=== PATIENT | male | born 1970 | race Hispanic/Latino ===

== ENCOUNTER 2022-09-25 10:30 | Inpatient (IN) | payer SELFPAY ==
[2022-09-25 11:42] LABS: Absolute Lymphocytes (CBC) 2.1 K/uL (0.7-4.9); Hematocrit 39.6 % (39.6-49.0); Lymphocytes % 13.2 % (15.3-44.8); MCV 84.7 fL (80-100); MPV 8.6 fL (7.6-11.3); RBC Red Blood Cell Count 4.68 M/uL (4.33-5.43)
[2022-09-25 11:47] LABS: Urine Blood 2+ (Negative); Urine Glucose Trace (Negative); Urine Protein 2+ (Negative); Urine Specific Gravity 1.025 (1.005-1.030); Urine pH 5.5 (5.0-7.0)
[2022-09-25 12:35] LABS: Platelet Estimate ADEQ; White Blood Cell Scan OK (OK)
[2022-09-25 12:36] LABS: Blood Morphology Comment NOT SEEN (NOT SEEN)
--- NOTE | 2022-09-25 15:11 | RAD REPORT ---
EXAM DESCRIPTION: CTAbdomen Pelvis W Contrast - 09/25/2022 2:45 pm CLINICAL HISTORY: right lower abdominal pain COMPARISON: No comparisons TECHNIQUE: CT of the abdomen and pelvis was performed with IV contrast. All CT scans are performed using dose optimization technique as appropriate and may include automated exposure control or mA/KV adjustment according to patient size. FINDINGS: Lower chest: No acute abnormality. Liver: No acute abnormality or suspicious lesions. Biliary: No biliary ductal dilatation. Stomach: No significant focal abnormality. Duodenum: No significant focal abnormality. Pancreas: No significant abnormality. Spleen: No significant abnormality. Adrenal: No suspicious lesions. Kidney/ureter: No hydronephrosis. No renal calculi. Renal cysts. Retroperitoneum: No retroperitoneal adenopathy. Vascular: No aneurysm. Bowel: Gas containing collection with cecal wall measuring 7.5 x 6.6 cm within the small bowel mesent lidia. Normal appendix.. No bowel obstruction. Peritoneum: No ascites or free air. Bladder: Grossly unremarkable. Reproductive: No adnexal masses. Bones: No acute fracture. Other: n/a IMPRESSION: Predominantly soft tissue mass in the small bowel mesentery which contains both gas and fluid is suspicious for small bowel neoplasm as the eccentric thickening of the wall is not typical o f an abscess. Furthermore, no significant inflammatory changes are noted. Recommend surgical consulta tion. Note the appendix is normal.
--- NOTE | 2022-09-25 15:37 | ER ---
Nurse's Notes [facility] Name: Rick Carey Age: 52 yrs Sex: Male : 1970 Arrival Date: 09/25/2022 Time: 10:33 Bed 14 Private MD: Diagnosis: Enteritis and colitis;Leukocytosis Presentation: 09/25 11:07 Chief complaint: Patient states: RLQ pain X 1 day. Coronavirus screen: At this time, ld1 the client does not indicate any symptoms associated with coronavirus-19. Ebola Screen: No symptoms or risks identified at this time. Initial Sepsis Screen: Does the patient meet any 2 criteria? No. Patient's initial sepsis screen is negative. Does the patient have a suspected source of infection? No. Patient's initial sepsis screen is negative. Risk Assessment: Do you want to hurt yourself or someone else? Patient reports no desire to harm self or others. Onset of symptoms was September 25, 2022 at 11:09. 11:07 Method Of Arrival: Ambulatory ld1 11:07 Acuity: RONA 3 ld1 Triage Assessment: 11:07 General: Appears in no apparent distress. comfortable, Behavior is calm, cooperative, ld1 appropriate for age. Pain: Complains of pain in right lower quadrant Pain does not radiate. Pain currently is 9 out of 10 on a pain scale. Quality of pain is described as throbbing, Pain began suddenly, Is continuous. EENT: No signs and/or symptoms were reported regarding the EENT system. Neuro: Level of Consciousness is awake, alert, obeys commands, Oriented to person, place, time, situation. Cardiovascular: Capillary refill < 3 seconds Patient's skin is warm and dry. Respiratory: Airway is patent Respiratory effort is even, unlabored. GI: Abdomen is flat, non-distended. : No signs and/or symptoms were reported regarding the genitourinary system. Historical: - Allergies: 11:07 No Known Allergies; ld1 - PMHx: 11:07 None; ld1 - PSHx: 11:07 None; ld1 - Immunization history:: Adult Immunizations up to date, Client reports receiving the 2nd dose of the Covid vaccine. - Social history:: Smoking status: Patient denies any tobacco usage or history of. Patient/guardian denies using alcohol. Screenin:49 Abuse screen: Denies threats or abuse. Denies injuries from another. Nutritional aa9 screening: No deficits noted. Tuberculosis screening: No symptoms or risk factors identified. Assessment: 16:14 General: Appears in no apparent distress. comfortable, Behavior is calm, cooperative, kr3 appropriate for age. Pain: Complains of pain in abdomen. Neuro: Level of Consciousness is awake, alert, obeys commands, Oriented to person, place, time, situation. Cardiovascular: Patient's skin is warm and dry. Respiratory: Airway is patent Respiratory effort is even, unlabored, Respiratory pattern is regular, symmetrical. GI: Bowel sounds present X 4 quads. Abd is soft in right upper quadrant, left upper quadrant and left lower quadrant Abd is non tender Abdomen is tender to palpation in right lower quadrant. : No signs and/or symptoms were reported regarding the genitourinary system. EENT: No signs and/or symptoms were reported regarding the EENT system. Derm: Skin is intact, is healthy with good turgor. Musculoskeletal: Circulation, motion, and sensation intact. Vital Signs: 11:07 BP 127 / 71; Pulse 80; Resp 18; Temp 99.8(O); Pulse Ox 97% on R/A; Weight 90.26 kg; ld1 Height 5 ft. 10 in. (177.80 cm); Pain 10/10; 11:07 Body Mass Index 28.55 (90.26 kg, 177.80 cm) ld1 ED Course: 10:33 Patient arrived in ED. mr 10:34 Alexander Dean PA is PHCP. jmm 10:34 Cameron Johnson MD is Attending Physician. jmm 11:07 Arm band placed on left wrist. ld1 11:09 Triage completed. ld1 11:39 Lipase Sent. zm 11:39 CMP Sent. zm 11:39 CBC with Diff Sent. zm 11:40 Inserted saline lock: 20 gauge in left antecubital area, using aseptic technique. Blood zm collected. 14:47 CT Abd/Pelvis - IV Contrast Only In Process Unspecified. EDMS 15:34 Tae Beth MD is Hospitalizing Provider. jmm 16:14 Daphne Rosenbaum RN is Primary Nurse. kr3 19:49 Patient has correct armband on for positive identification. Bed in low position. Call aa9 light in reach. Side rails up X2. 19:49 No provider procedures requiring assistance completed. Patient admitted, IV remains in aa9 place. Administered Medications: 16:58 Drug: Zosyn (piperacillin-tazobactam) 3.375 grams Route: IVPB; Infused Over: 60 mins; kr3 Site: left hand; Medication: 19:49 VIS not applicable for this client. aa9 Outcome: 15:37 Decision to Hospitalize by Provider. [facility] 19:49 Admitted to ER Hold. Please see [facility] for further documentation. aa9 19:49 Condition: stable 19:49 Instructed on the need for admit. 09/26 13:15 Patient left the ED. kr3 Signatures: Dispatcher [employer] EDMS Alexander Dean PA PA jmm Rivera, Mary mr Marce Ovalles, RN RN ld1 Rosemarie Richardson Aylin RN RN aa9 Daphne Rosenbaum RN RN kr3
--- NOTE | 2022-09-25 15:37 | EDPHYS ---
Physician Documentation [facility] Name: Rick Carey Age: 52 yrs Sex: Male : 1970 Arrival Date: 09/25/2022 Time: 10:33 Bed 14 Private MD: ED Physician Cameron Johnson HPI: 09/25 11:08 This 52 yrs old Male presents to ER via Ambulatory with complaints of jmm Abdominal Pain. 11:08 The patient presents with abdominal pain. Onset: The symptoms/episode began/occurred jmm gradually, today. The symptoms do not radiate. Associated signs and symptoms: Pertinent negatives: diarrhea, vomiting. The symptoms are described as achy. Modifying factors: The symptoms are alleviated by nothing, the symptoms are aggravated by nothing. This is a 52 year old male with no chronic medical conditions that presents to the ED with complaints of right lower abdominal pain beginning earlier today. Denies fever, vomiting, diarrhea. Historical: - Allergies: 11:07 No Known Allergies; ld1 - PMHx: 11:07 None; ld1 - PSHx: 11:07 None; ld1 - Immunization history:: Adult Immunizations up to date, Client reports receiving the 2nd dose of the Covid vaccine. - Social history:: Smoking status: Patient denies any tobacco usage or history of. Patient/guardian denies using alcohol. ROS: 11:08 Constitutional: Negative for fever, chills, and weight loss, Cardiovascular: Negative jmm for chest pain, palpitations, and edema, Respiratory: Negative for shortness of breath, cough, wheezing, and pleuritic chest pain. 11:08 Abdomen/GI: Positive for abdominal pain. 11:08 All other systems are negative. Exam: 11:08 Constitutional: This is a well developed, well nourished patient who is awake, alert, jmm and in no acute distress. Head/Face: atraumatic. Eyes: EOMI, no conjunctival erythema appreciated ENT: Moist Mucus Membranes Neck: Trachea midline, Supple Chest/axilla: Normal chest wall appearance and motion. Cardiovascular: Regular rate and rhythm. No edema appreciated Respiratory: Normal respirations, no respiratory distress appreciated 11:08 Back: Normal ROM Skin: General appearance color normal MS/ Extremity: Moves all extremities, no obvious deformities appreciated, no edema noted to the lower extremities Neuro: Awake and alert Psych: Behavior is normal, Mood is normal, Patient is cooperative and pleasant 11:08 Abdomen/GI: Inspection: abdomen appears normal, Bowel sounds: normal, Palpation: soft, moderate abdominal tenderness, in the right lower quadrant. Vital Signs: 11:07 BP 127 / 71; Pulse 80; Resp 18; Temp 99.8(O); Pulse Ox 97% on R/A; Weight 90.26 kg; ld1 Height 5 ft. 10 in. (177.80 cm); Pain 10/; 11:07 Body Mass Index 28.55 (90.26 kg, 177.80 cm) ld1 MDM: 11:08 Patient medically screened. [facility] 15:31 Data reviewed: vital signs, nurses notes. Counseling: I had a detailed discussion with [facility] the patient and/or guardian regarding: the historical points, exam findings, and any diagnostic results supporting the discharge/admit diagnosis, radiology results, the need for further work-up and treatment in the hospital. ED course: I discussed the patient with Dr. Richardson whom will consult on admission. I discussed the patient with Dr. Beth whom accepted the patient for admission. . 09/25 11:08 Order name: CBC with Diff; Complete Time: 12:38 [facility] 09/25 11:08 Order name: CMP; Complete Time: 15:46 [facility] 09/25 11:08 Order name: Lipase; Complete Time: 15:46 [facility] 09/25 11:47 Order name: Urine Dipstick-Ancillary; Complete Time: 11:47 [facility] 09/25 12:36 Order name: CBC Smear Scan; Complete Time: 12:38 [facility] 09/25 14:47 Order name: CREATININE WHOLE BLOOD; Complete Time: 14:48 [facility] 09/25 15:20 Order name: SARS RAPID; Complete Time: 18:18 [facility] 09/25 16:24 Order name: Protime (+INR); Complete Time: 09:17 [facility] 09/25 16:24 Order name: CBC with Automated Diff [facility] 09/25 16:24 Order name: CBC with Automated Diff; Complete Time: 09:17 [facility] 09/25 16:24 Order name: Comprehensive Metabolic Panel [facility] 09/25 16:24 Order name: Comprehensive Metabolic Panel; Complete Time: 09:17 [facility] 09/25 16:24 Order name: Acute Hepatitis Panel; Complete Time: 09:17 [facility] 09/26 05:34 Order name: HBsAG Nonreactive Report; Complete Time: 09:17 [facility] 09/25 11:08 Order name: CT Abd/Pelvis - IV Contrast Only; Complete Time: 15:12 [facility] 09/25 11:08 Order name: IV Saline Lock; Complete Time: 11:39 [facility] 09/25 11:08 Order name: Labs collected and sent; Complete Time: 11:28 [facility] 09/25 11:08 Order name: Urine Dipstick-Ancillary (obtain specimen); Complete Time: 11:39 [facility] 09/25 12:51 Order name: Misc. Order: recollect CMP; Complete Time: 15:05 [facility] 09/25 16:24 Order name: NPO; Complete Time: 16:43 [facility] 09/25 16:25 Order name: Dr Annabel Richardson EDVT Administered Medications: 16:58 Drug: Zosyn (piperacillin-tazobactam) 3.375 grams Route: IVPB; Infused Over: 60 mins; kr3 Site: left hand; Disposition Summary: 09/25/22 15:37 Hospitalization Ordered Hospitalization Status: Observation [facility] Provider: Tae Beth Condition: Stable [facility] Problem: new [facility] Symptoms: are unchanged [facility] Bed/Room Type: Standard [facility] Location: Telemetry/MedSurg (observation)(09/26/22 11:53) kj1 Room Assignment: [facility](09/26/22 11:53) kj1 Diagnosis - Enteritis and colitis jm - Leukocytosis [facility] Forms: - Medication Reconciliation Form [facility] - SBAR form [facility] Signatures: Dispatcher [employer] EDMS Alexander Dean PA PA m Aysha Pérez RN RN jl7 Araceli Fonseca kj1 Marce Ovalles RN RN ld1 Daphne Rosenbaum RN RN kr3 Corrections: (The following items were deleted from the chart) 18:57 15:37 Telemetry/MedSurg (observation) [facility] jl 18:57 15:37 [place] [id number] 09/26 11:53 09/25 18:57 [facility] ER HOLD [facility] kj1 09/26 11:53 09/25 18:57 ERHOLD- [facility] kj
[2022-09-25 15:38] LABS: Albumin 3.9 g/dL (3.4-5.0); Bilirubin Total 1.8 mg/dL (0.2-1.0); Potassium 3.7 mmol/L (3.5-5.1); Protein, Total 8.8 g/dL (6.4-8.2)
[2022-09-25] MEDS ORDERED: ONDANSETRON 4 MG/2 ML VIAL IV PRN (16:20)
--- NOTE | 2022-09-25 16:23 | P.HP ---
Certification for Inpatient Patient admitted to: Inpatient With expected LOS: >2 Midnights Practitioner: I am a practitioner with admitting privileges, knowledge of patient current condition, hospital course, and medical plan of care. Services: Services provided to patient in accordance with Admission requirements found in Title 42 Section 412.3 of the Code of Federal Regulations Patient History Date of Service: 09/25/22 Reason for admission: Abdominal pain History of Present Illness: Patient is 52 years of age presented with acute onset of right periumbilical abdominal pain became worse last night and it appeared in the emergency room normal CT scan eyes any fever chills diarrhea vomiting - Past Medical/Surgical History Past Medical History: Reviewed- Non-Contributory Past Surgical History: Reviewed- Non-Contributory Review of Systems 10-point ROS is otherwise unremarkable Physical Examination - Physical Exam General: Alert, Oriented x3 Neck: Supple Respiratory: Clear to auscultation bilaterally Cardiovascular: No edema, Normal pulses, Regular rate/rhythm Gastrointestinal: Normal bowel sounds, Tenderness (Slight deep tenderness right of the umbilicus area no rebound or guarding) - Studies Laboratory Data (last 24 hrs) 09/25/22 15:03: Sodium 135 L, Potassium 3.7, BUN 14, Creatinine 0.92, Glucose 124 H, Total Bilirubin 1.8 H, AST 93 H, ALT 222 H, Alkaline Phosphatase 185 H, Lipase 102 09/25/22 11:30: WBC 15.80 H, Hgb 14.0, Hct 39.6, Plt Count 275 Assessment and Plan - Problems (Diagnosis) (1) Abdominal pain Current Visit: Yes Status: Acute Plan: Patient is 52 years of age previously healthy admitted with acute onset of abdominal pain and CT scan is abnormal this may be a mass in the small intestine as detailed below-possibility of small bowel neoplasm Dylan has been consulted labs abnormal normal LFTs start patient on antibiotics for now IV fluids n.p.o. Predominantly soft tissue mass in the small bowel mesentery which contains both gas and fluid is suspicious for small bowel neoplasm as the eccentric thickening of the wall is not typical of an abscess. Furthermore, no significant inflammatory changes are noted. Recommend surgical consultation. Note the appendix is normal. Qualifiers: Abdominal location: periumbilical Qualified Code(s): R10.33 - Periumbilical pain - Advance Directives Does patient have a Living Will: No Does patient have a Durable POA for Healthcare: No
[2022-09-25] MEDS ORDERED: NA CHLORIDE 0.9% 100 ML IV ONE (16:47)
[2022-09-25] MEDS ORDERED: PIPERACIL/TAZO 3.375 GM VIAL IV ONE (16:47)
[2022-09-25] MEDS: PIPER TAZO 4.5 GM in NA CHLORIDE 0.9% 100 ML IV SCH (17:00)
[2022-09-25] MEDS: NA CHLORIDE 0.9% 1,000 ML IV SCH (17:00)
[2022-09-25 18:13] LABS: SARS-CoV-2 Antigen Rapid Res Negative (Negative)
[2022-09-25] MEDS ORDERED: NA CHLORIDE 0.9% 1,000 ML ONE (21:49)
[2022-09-26] MEDS: PIPER TAZO 4.5 GM in NA CHLORIDE 0.9% 100 ML IV SCH ×2 (01:00→09:00)
[2022-09-26] MEDS ORDERED: NA CHLORIDE 0.9% 1,000 ML ONE (01:28)
[2022-09-26] MEDS ORDERED: PIPERACIL/TAZO 4.5 GM VIAL IV ONE ×2 (01:28→08:53)
[2022-09-26] MEDS ORDERED: NA CHLORIDE 0.9% 100 ML IV ONE ×2 (01:28→08:54)
[2022-09-26] MEDS: NA CHLORIDE 0.9% 1,000 ML IV SCH ×2 (02:50→14:00)
[2022-09-26 03:01] LABS: Absolute Lymphocytes (CBC) 1.1 K/uL (0.7-4.9); Hematocrit 37.1 % (39.6-49.0); Lymphocytes % 9.2 % (15.3-44.8); MCV 86.3 fL (80-100); MPV 8.5 fL (7.6-11.3); Protime INR 1.18
[2022-09-26] MEDS: MORPHINE 2 MG/ML SYR IV PRN ×2 (03:13→09:31)
[2022-09-26 03:14] LABS: Albumin 3.3 g/dL (3.4-5.0); Bilirubin Total 1.9 mg/dL (0.2-1.0); Potassium 3.6 mmol/L (3.5-5.1); Protein, Total 7.4 g/dL (6.4-8.2)
[2022-09-26] MEDS ORDERED: MORPHINE 2 MG/ML SYR ONE ×2 (03:19→08:54)
[2022-09-26 05:33] LABS: Hepatitis B Core IgM Nonreactive (Nonreactive); Hepatitis B surface AG Interp. Nonreactive (Nonreactive); Hepatitis C Virus Ab Nonreactive (Nonreactive)
--- NOTE | 2022-09-26 13:10 | CON ---
Date of Consultation: 09/26/2022 History Of Present Illness: Mr. Ladd is a 52-year-old patient, who came to the hospital with abd ominal pain. He says he had it several weeks ago, the area improved on his own. It was around the [facility] region, but yesterday he was invited to some friend's house and ate a lot of pork and th en the pain started and he came to the ER. When he came to the ER, he was diagnosed with colitis and enteritis, cannot rule out inflammation from infection versus neoplasm. The patient feels better to day. Abdominal pain is a lot better with no nausea, vomiting. No melena. He denies any dysuria, he maturia, hematochezia, melena. Denies any recent traveling out of the country. Denies any family me mber sick at home. Allergies: NONE. Medications: None. Past Surgical History: Surgeries none. Social History: He does not smoke. He does not drink alcohol. Family History: No history of cancer or neoplasm. No previous colonoscopies. Review of Systems: Ten points otherwise unremarkable. Physical Examination: HEENT: Pupils are equal and reactive. Anicteric. Neck: Supple. Chest: Clear. Heart: S1, S2. Abdomen: Soft and depressible. Mild mid abdominal pain. No guarding or rebound. No peritoneal sig ns. Laboratory Data: Blood work shows a WBC count of 15, came down to 11. Platelets of 243. INR is 1.1 8. Sodium is 136. Total bilirubin of 1.9, alkaline phosphatase 146, lipase 102. UA, nitrate positi ve. CAT scan of the abdomen and pelvis shows as described by Dr. Mejia, radiologist, predominantly so ft tissue mass in the small bowel mesentery, which contained both gas and fluid suspicious for small bowel neoplasm, although abscess cannot be rule out. Appendix seems to be normal. Assessment: This is a 52-year-old patient, who comes to us with abdominal pain on and off, feels bet ter right now. The pain is almost gone. He was eating a lot of food yesterday including a lot of po rk when he went to a friend's republican, developed the pain, today is better, but then on the CAT scan, h e was found this a mesenteric tissue that cannot rule out neoplasm versus abscess. From the surgical standpoint, this is colitis and enteritis, so we will bring the inflammation down, hopefully that wi ll allow us to eventually do workup including GI workup, may include colonoscopy to see we can find e tiology of this inflammatory process. In the case if not found on endoscopies and does not come down with antibiotics, then diagnostic lap is an option most likely as an outpatient if he improves durin g this admission. So, continue on antibiotics. We are going to start his diet. SOPHIA/AMANUEL Voice ID: [id number] Report ID: [id number]
[2022-09-26] MEDS: PIPER TAZO 3.375 GM in NA CHLORIDE 0.9% 100 ML IV SCH (17:04)
--- NOTE | 2022-09-26 17:34 | P.PN ---
Subjective Date of Service: 09/26/22 Chief Complaint: Abdominal pain Patient reports significant improvement in his abdominal pain. Reports only mild intermittent pain today. He has been experiencing intermittent low-grade fever. Physical Examination - Vital Signs Temperature: 100.1 F Blood Pressure: 122/60 Pulse: 88 Respirations: 18 Pulse Ox (%): 97 - Physical Exam General: Alert, In no apparent distress, Oriented x3 HEENT: Mucous membr. moist/pink Neck: Supple, JVD not distended Respiratory: Clear to auscultation bilaterally, Normal air movement Cardiovascular: No edema, Regular rate/rhythm, Normal S1 S2 Gastrointestinal: Normal bowel sounds, Soft and benign, No guarding, Tenderness (Mild mid abdomen tenderness) Musculoskeletal: No swelling, No tenderness Integumentary: No rashes, No erythema Neurological: Normal strength at 5/5 x4 extr Assessment And Plan - Current Problems (Diagnosis) (1) Enterocolitis Current Visit: Yes Status: Acute (2) Mesenteric mass Current Visit: Yes Status: Acute (3) Sepsis Current Visit: Yes Status: Acute - Plan Patient seen by general surgery. Dr. Richardson recommend medical management for enteritis and colitis. Patient will need outpatient work-up with colonoscopy. Patient started on a clear liquid diet by general surgery. Obtain blood cultures given fever and leukocytosis meeting criteria for sepsis. Continue IV Zosyn. Leukocytosis is improving. Monitor CBC.
[2022-09-27] MEDS: NA CHLORIDE 0.9% 1,000 ML IV SCH ×4 (00:46→21:23)
[2022-09-27] MEDS: PIPER TAZO 3.375 GM in NA CHLORIDE 0.9% 100 ML IV SCH ×3 (00:49→16:20)
[2022-09-27 03:50] LABS: Hematocrit 32.6 % (39.6-49.0); Lymphocytes % 11.2 % (15.3-44.8); MCV 85.3 fL (80-100); MPV 8.4 fL (7.6-11.3); RBC Red Blood Cell Count 3.82 M/uL (4.33-5.43)
[2022-09-27 04:14] LABS: Albumin 2.8 g/dL (3.4-5.0); Bilirubin Total 2.2 mg/dL (0.2-1.0); Potassium 3.7 mmol/L (3.5-5.1); Protein, Total 6.7 g/dL (6.4-8.2)
[2022-09-27] MEDS: ACETAMINOPHEN 500 MG TAB PO PRN ×2 (05:37→16:57)
--- NOTE | 2022-09-27 11:03 | PN ---
Date of Progress Note: 09/27/2022 Reason For Service: Inflammatory mass in the mesentery, unknown etiology. Subjective: Patient feels better. No more nausea. He was almost pain-free overnight. He ate some breakfast this morning and pain somehow came not as of same intensity, but present. No peritonitis p resent. Patient is passing flatus. Objective: Chest: Clear. Abdomen: Soft and depressible. Mild periumbilical tenderness. No guarding or rebound. Extremities: Good capillary refill. Laboratory Data: Blood work came down from 15 to 8.0 with hemoglobin of 11.4. Patient has been on antibiotics. Plan: He understands his options of laparotomy versus elective laparoscopic possible open surgery. Since we do not know the etiology of this, some workup has to be done or should be done including GI endoscopies that he does not have them yet. So, with antibiotics he responding, he is feeling better . We are controlling the inflammatory process of it since we cannot rule out an abscess in that area as the etiology of this. If he improves and then he can tolerate diet, then the rest of the workup can be done as an outpatient with a surgery possibly at the end of this workup. He preferred that wa y. If he does not improve and clinically he deteriorates, then we have to go for exploratory laparot salma and any indicated procedure. SOPHIA/AMANUEL Voice ID: [id number] Report ID: [id number]
--- NOTE | 2022-09-27 15:09 | P.PN ---
Subjective Date of Service: 09/27/22 Chief Complaint: Abdominal pain Patient has no new complaint. Noted he has been experiencing intermittent fever, up to 100.7 this morning. He reports BM yesterday. He reports only mild abdominal pain. Physical Examination - Vital Signs Temperature: 98.2 F Blood Pressure: 104/53 Pulse: 66 Respirations: 16 Pulse Ox (%): 98 - Physical Exam General: Alert, In no apparent distress, Oriented x3 HEENT: Mucous membr. moist/pink Neck: JVD not distended Respiratory: Clear to auscultation bilaterally, Normal air movement Cardiovascular: No edema, Regular rate/rhythm, Normal S1 S2 Gastrointestinal: Soft and benign, Non-distended, No tenderness, No rebound, No guarding Musculoskeletal: No swelling Integumentary: No cyanosis Neurological: Normal strength at 5/5 x4 extr Assessment And Plan - Current Problems (Diagnosis) (1) Enterocolitis Current Visit: Yes Status: Acute (2) Mesenteric mass Current Visit: Yes Status: Acute (3) Sepsis Current Visit: Yes Status: Acute - Plan Patient seen by general surgery. Dr. Richardson recommend medical management for enteritis and colitis. Patient will need outpatient work-up with colonoscopy. Is currently tolerating clear liquid diet by general surgery. Blood cultures are pending. Leukocytosis resolved. Continue IV Zosyn. Monitor CBC. Patient has clinically improved. Planning to D/C once fever resolve.
[2022-09-28] MEDS: PIPER TAZO 3.375 GM in NA CHLORIDE 0.9% 100 ML IV SCH ×3 (01:00→18:32)
[2022-09-28] MEDS: NA CHLORIDE 0.9% 1,000 ML IV SCH ×3 (05:00→18:36)
--- NOTE | 2022-09-28 14:38 | P.PN ---
Subjective Date of Service: 09/28/22 Chief Complaint: Abdominal pain Patient is complaining of diarrhea. About 5 watery bowel movement last night. He reports only mild abdominal pain. He continues to experience intermittent low-grade fever. Physical Examination - Vital Signs Temperature: 98.7 F Blood Pressure: 130/62 Pulse: 81 Respirations: 16 Pulse Ox (%): 97 - Physical Exam General: Alert, In no apparent distress, Oriented x3 HEENT: Mucous membr. moist/pink Respiratory: Clear to auscultation bilaterally, Normal air movement Cardiovascular: No edema, Regular rate/rhythm, Normal S1 S2 Gastrointestinal: Normal bowel sounds, Soft and benign, Non-distended, Tenderness (Mild tenderness - mid abdomen) Musculoskeletal: No swelling Integumentary: No rashes Neurological: Normal strength at 5/5 x4 extr Assessment And Plan - Current Problems (Diagnosis) (1) Enterocolitis Current Visit: Yes Status: Acute (2) Mesenteric mass Current Visit: Yes Status: Acute (3) Sepsis Current Visit: Yes Status: Acute - Plan General surgery Dr. Richardson is following and recommend medical management for now. Continue IV Zosyn. Check stool for C. difficile given diarrhea outpatient work-up with colonoscopy recommended by surgeon if patient clinical condition continues to improve. Otherwise exploratory laparotomy by Dr. Richardson. He is currently tolerating clear liquid diet recommended by Dr. Richardson.. Blood cultures: No growth to date. Leukocytosis resolved. Continue IV Zosyn. Monitor CBC.
[2022-09-28] MEDS: ACETAMINOPHEN 500 MG TAB PO PRN (15:09)
[2022-09-28] MEDS: ENSURE CLEAR 200 ML CAN PO SCH (20:05)
[2022-09-28] MEDS: Banana Flakes/T-Galactooligos 1 Dose Packet PO SCH (20:05)
[2022-09-28] MEDS: MORPHINE 2 MG/ML SYR IV PRN (20:28)
[2022-09-28 23:46] VITALS: BMI 28.3
[2022-09-29] MEDS: NA CHLORIDE 0.9% 1,000 ML IV SCH ×2 (01:00→23:03)
[2022-09-29] MEDS: PIPER TAZO 3.375 GM in NA CHLORIDE 0.9% 100 ML IV SCH ×3 (01:49→18:29)
[2022-09-29 04:25] LABS: Potassium 3.5 mmol/L (3.5-5.1)
[2022-09-29] MEDS: ENSURE CLEAR 200 ML CAN PO SCH ×2 (08:37→23:04)
[2022-09-29] MEDS ORDERED: INFLUENZA VACCINE (for 6+ mo) 0.5 ML DOSE IMVAC ONE (09:00)
[2022-09-29] MEDS: Banana Flakes/T-Galactooligos 1 Dose Packet PO SCH ×2 (09:00→21:00)
--- NOTE | 2022-09-29 13:26 | RAD REPORT ---
EXAM DESCRIPTION: CT - Abdomen Pelvis W Contrast - 09/29/2022 1:00 pm CLINICAL HISTORY: Abdominal pain COMPARISON: September 25, 2022 TECHNIQUE: Computed axial tomography of the abdomen pelvis was obtained. 100 cc Isovue-300 was admin istered intravenously. Oral contrast was not requested which limits evaluation of bowel and appendix All CT scans are performed using dose optimization technique as appropriate and may include automated exposure control or mA/KV adjustment according to patient size. FINDINGS: The liver, spleen, pancreas, adrenal and right kidney appear unremarkable. Left renal cyst unchanged. There is no evidence of diverticulitis. Visualized appendix appears normal 9 x 8 centimeter fluid-filled mass within the central mesentery within the lower abdomen/upper pelvis anteriorly has enlarged. It contains air. Mild stranding within the adjacent fat. The mass has enlar ged since the prior exam. It abuts the small bowel. No obstruction. IMPRESSION: 9 centimeter fluid-filled mass containing air within the central mesentery has enlarged since the prior exam probably an abscess. Considerations include bacterial, MICHELLE and amoebiasis
--- NOTE | 2022-09-29 16:11 | P.PN ---
Subjective Date of Service: 09/29/22 Chief Complaint: Abdominal pain Patient states the diarrhea has improved, no more vomiting He reports persistent mild abdominal pain. No fever today. Physical Examination - Vital Signs Temperature: 99.4 F Blood Pressure: 117/61 Pulse: 71 Respirations: 16 Pulse Ox (%): 95 - Physical Exam General: Alert, In no apparent distress HEENT: Mucous membr. moist/pink Neck: JVD not distended Respiratory: Clear to auscultation bilaterally, Normal air movement Cardiovascular: No edema, Regular rate/rhythm, Normal S1 S2 Gastrointestinal: Soft and benign, Non-distended, No rebound, No guarding, Tenderness (Mid abdomen) Musculoskeletal: No swelling Integumentary: No rashes, No cyanosis Neurological: Normal strength at 5/5 x4 extr Assessment And Plan - Current Problems (Diagnosis) (1) Intra-abdominal abscess Current Visit: Yes Status: Acute (2) Mesenteric mass Current Visit: Yes Status: Acute (3) Sepsis Current Visit: Yes Status: Acute - Plan General surgery Dr. Richardson is following. Repeat CT scan shows an enlarging abscess-could be infectious, MICHELLE or amoeba per radiology. Dr. Richardson is planning exploratory laparotomy tomorrow Continue IV Zosyn. C. difficile test is pending Blood cultures: No growth to date. Leukocytosis resolved. Monitor CBC. Pain management as needed.
[2022-09-29] MEDS: MORPHINE 2 MG/ML SYR IV PRN (23:08)
--- NOTE | 2022-09-30 01:15 | PN ---
Date of Progress Note: 09/29/2022 Reason For Service: Intraabdominal mass, colitis, enteritis. Subjective: This is the case of a 52-year-old patient who came to us few days ago with abdominal miles n, initially found an area on the mesentery, which had the appearance of a tumor, although inflammato ry changes or abscess cannot be ruled out. Etiology is unknown. Patient was started on antibiotics, bowel rest. Today, the CAT scan repeated and what we noticed is that, the area of concern is increa sing in size. There is a 9 cm now fluid-filled mass containing air within the central mesentery, but still the etiology of that is unknown. Many consideration described by the radiologist may include a bacterial versus amoeba, once again, there is still the possibility of a mass. The patient is stil l having pain. Physical Examination: Mid abdominal pain is still present, not improving, although today is treated with antibiotics. So, we explained to him the pros and cons of surgical intervention. He wants to go ahead with the surgic al intervention. We are going to put as diagnostic laparoscopy, possible exploratory laparotomy, pos sible bowel resection, possible ostomy with benefits, alternatives, and risks including, but not limi shanta to infection, bleeding, damage to adjacent structures, anesthesia complication, MN, and even deat h. He also understands this may not relieve the symptoms. He might need more than one surgical inte rvention. SOPHIA/AMANUEL Voice ID: [id number] Report ID: [id number]
[2022-09-30] MEDS: PIPER TAZO 3.375 GM in NA CHLORIDE 0.9% 100 ML IV SCH ×3 (03:30→16:13)
[2022-09-30] MEDS: NA CHLORIDE 0.9% 1,000 ML IV SCH ×3 (07:00→16:55)
[2022-09-30] MEDS: MORPHINE 2 MG/ML SYR IV PRN (07:14)
[2022-09-30] MEDS: Banana Flakes/T-Galactooligos 1 Dose Packet PO SCH (07:28)
[2022-09-30] MEDS: ENSURE CLEAR 200 ML CAN PO SCH (07:28)
[2022-09-30 10:03] LABS: C.diff Antigen/Toxin Ag neg : Tox neg (NEG : NEG)
[2022-09-30] MEDS ORDERED: Ringers Lactate 1,000 ML IV ONE ×2 (14:47→17:15)
[2022-09-30] MEDS ORDERED: MIDAZOLAM HCL 2 MG/2 ML INJ ONE (15:40)
[2022-09-30] MEDS ORDERED: LIDOCAINE 1% MPF 5 ML VIAL ONE (15:40)
[2022-09-30] MEDS ORDERED: FENTANYL CITR 100 MCG/2 ML ONE ×2 (15:40→17:06)
[2022-09-30] MEDS ORDERED: propofoL 200 MG/20 ML VIAL IV ONE (15:40)
[2022-09-30] MEDS ORDERED: GLYCOPYRROLATE 0.2 MG/ML SYR ONE (15:41)
[2022-09-30] MEDS ORDERED: dexAMETHasone 4 MG/ML VIAL ONE (15:41)
[2022-09-30] MEDS ORDERED: KETOROLAC 30 MG/ML INJ ONE (15:42)
[2022-09-30] MEDS ORDERED: ROCURONIUM 50 MG/5 ML VIAL IV ONE ×2 (15:42→16:49)
[2022-09-30] MEDS ORDERED: ONDANSETRON 4 MG/2 ML VIAL ONE (15:42)
--- NOTE | 2022-09-30 15:46 | P.PN ---
Subjective Date of Service: 09/30/22 Chief Complaint: Abdominal pain Patient reports persistent mild abdominal pain. He states that his diarrhea has stopped. He is scheduled for surgery today. Physical Examination - Vital Signs Temperature: 97.9 F Blood Pressure: 115/56 Pulse: 65 Respirations: 16 Pulse Ox (%): 99 - Physical Exam General: Alert, In no apparent distress, Oriented x3 HEENT: Mucous membr. moist/pink Neck: JVD not distended Respiratory: Clear to auscultation bilaterally, Normal air movement Cardiovascular: Regular rate/rhythm, Normal S1 S2 Gastrointestinal: Normal bowel sounds, Tenderness (Mid abdomen) Musculoskeletal: No swelling Integumentary: No rashes Neurological: Normal strength at 5/5 x4 extr Assessment And Plan - Current Problems (Diagnosis) (1) Intra-abdominal abscess Current Visit: Yes Status: Acute (2) Mesenteric mass Current Visit: Yes Status: Acute (3) Sepsis Current Visit: Yes Status: Acute - Plan General surgery Dr. Richardson is following. Repeat CT scan shows an enlarging abscess-could be infectious, MICHELLE or amoeba per radiology. Dr. Richardson is planning exploratory laparascopy/laparotomy today. Continue IV Zosyn. C. difficile is negative. Blood cultures: No growth to date. Leukocytosis resolved. Monitor CBC. Pain management as needed.
--- NOTE | 2022-09-30 17:59 | P.BOP ---
Preoperative diagnosis: abdominal pain, intrabdominal abscess, mass, bowel obstruction Postoperative diagnosis: same plus umbilical hernia Primary procedure: Explorarory laparotomy, small bowel resection with anastomosis, drainage of Secondary procedure: intraperitoneal abscess, repair of umbilical hernia Estimated blood loss: <100cc Specimen: culture. inflammatory mass with small bowel loops Findings: see dicta Anesthesia: General Drain(s): SHERLYN drain Transferred to: Recovery Room Condition: Good
[2022-09-30] MEDS: HYDROMORPHONE HCL 1 MG/ML INJ ONE ×2 (18:11→18:16)
[2022-09-30] MEDS ORDERED: HYDROMORPHONE HCL 1 MG/ML INJ ONE (18:36)
--- NOTE | 2022-09-30 19:31 | RAD REPORT ---
EXAM DESCRIPTION: RAD - Abdomen 1 View (KUB) - 09/30/2022 7:21 pm CLINICAL HISTORY: Placement of NGT/OGT. Post Insertion. COMPARISON: Abdomen Pelvis W Contrast dated 09/29/2022; Abdomen Pelvis W Contrast dated 09/25/20 FINDINGS: Nonobstructive bowel gas pattern. No acute osseous abnormality.Visualized lungs are unrema rkable.No abnormal calcifications. Enteric tube overlies the stomach. Surgical drain overlies the low er abdomen. Midline laparotomy alfred IMPRESSION: Nonobstructive bowel gas pattern. Enteric tube tip overlies the stomach in satisfactory position.
[2022-10-01] MEDS: PIPER TAZO 3.375 GM in NA CHLORIDE 0.9% 100 ML IV SCH ×3 (01:59→16:54)
[2022-10-01] MEDS: NA CHLORIDE 0.9% 1,000 ML IV SCH ×4 (01:59→20:17)
--- NOTE | 2022-10-01 03:33 | OP ---
Date of Procedure: 09/30/2022 Surgeon: Brice Richardson MD Preoperative Diagnoses: Abdominal pain, intraabdominal abscess, inflammatory mass, bowel obstruction , umbilical hernia. Postoperative Diagnoses: Abdominal pain, intraabdominal abscess, inflammatory mass, bowel obstructio n, umbilical hernia. Procedure: Exploratory laparotomy, small bowel resection with anastomosis, drainage of intraperitone al abscess, repair of umbilical hernia. Anesthesia: General plus local to drainage SHERLYN #10 x2. Findings: The patient has an inflammatory mass with an abscess, large amount of pus present with int estine twist around it, densely adhered to the abscess itself to the point that the bowel have to be resected. There is a large amount of purulent discharge coming from this abscess cavity. The liver and stomach, the rest of intestines, proximal and distal, and large bowel with no inflammatory masses seen other than that specific area we described. The patient also have umbilical hernia. Stomach s oft and depressible. Indications: This is the case of a male, who comes to us with abdominal pain and inflammatory reacti on in his abdomen. Initially, they were not sure there was a tumor or just an abscess. Antibiotics was started, but in the last few days, he has not improved. He is still having some difficult time e ating and he has an inflammatory process and abscess and right now has a liquid . The poss ibility of a tumor versus small bowel leak with abscess or torsion of the small bowel leak of necrosi s was discussed with the patient and because clinically, he is not improving. After discussing that with him few times and the in Greek and Trinidadian, finally, he accepted that he was not improvin g and signed a consent today and we proceeded to offer him once again laparotomy possible resection w ith benefits, alternatives, and risks including, but not limited to infection, bleeding, damage to ad jacent structures, anesthesia complication, recurrence of abscess, [place], and even . He also under stands this may not relieve any symptoms. He might need more than one surgical intervention. He und erstood, signed a consent. Description Of Procedure: Patient was brought to the operating room, placed in supine position. Ane sthesia was given without complication. Abdominal area was prepped and draped in the usual sterile f ashion. Midline incision was done, carried through the fascia under direct visualization and when we went there, we noticed this inflammatory mass involving at least 1 foot of bowel densely attached to that area and that goes into the mesentery. We obtained proximal and distal control and then we pro ceeded with the exploratory laparotomy, and then we could not find anything else in that area. Even the liver looks smooth. We noticed that mass has purulent discharge. A large amount of pus was obta ined. Then, we proceeded to remove that segment of the bowel down into the mesentery and sent that t o the pathologist. We obtained proximal and distal control, transected that with a GI stapling eleazar greene. The mesentery was dissected in a V-shaped fashion all the way down to the lymph nodes with the he lp of the LigaSure. Specimen marked and sent to the pathologist. Profuse irrigation of the abdomen was done since we have extensive amount of pus in that area. Then, after that, we placed a proximal and distal segment loops without tension, put a silk at the end of that next to the anastomosis do en terotomies, create anastomosis with a JASON 55 and then closed the enterotomies with TA 55. Anastomosi s was created. The mesentery was approximated with 3-0 chromic. The area was profusely irrigated ag ain. We noticed the proximal bowel loops still viable. Good color, good peristalsis. No bleeding. I proceeded to leave 2 SHERLYN drains over the area of the abscess and the pelvis. This was exiting thro ugh different sites and secured in place with 3-0 nylon. Once again, sponge count correct and then w e proceeded to close the fascia with #2 nylon in a running fashion, closed the umbilical hernia patie nt had that we found initially also with a nylon. Approximated the chromic with the subcutaneous tis [place] with 3-0 chromic, but we did not close the skin completely since we have a purulent discharge ins [place] the belly, we put some alfred apart with packing in between iodoform half-inch. The patient ahmet erated the procedure well. Sponge count and instrument counts correct. Patient was sent to recovery room in stable condition. SOPHIA/AMANUEL Voice ID: [id number] Report ID: [id number]
[2022-10-01] MEDS: MORPHINE 4 MG/ML SYR IV PRN ×3 (04:26→20:16)
[2022-10-01 04:50] LABS: Absolute Lymphocytes (CBC) 0.8 K/uL (0.7-4.9); Hematocrit 31.9 % (39.6-49.0); Lymphocytes % 7.1 % (15.3-44.8); MCV 87.2 fL (80-100); MPV 9.3 fL (7.6-11.3); RBC Red Blood Cell Count 3.66 M/uL (4.33-5.43)
--- NOTE | 2022-10-01 16:04 | P.PN ---
Subjective Date of Service: 10/01/22 Chief Complaint: Abdominal pain Patient has no new complaint. Status post exploratory laparotomy, bowel resection and anastomosis and drainage of intra-abdominal abscess yesterday. Currently n.p.o. with NG tube to suction in place. Physical Examination - Vital Signs Temperature: 97.5 F Blood Pressure: 130/62 Pulse: 59 Respirations: 16 Pulse Ox (%): 96 - Physical Exam General: Alert, In no apparent distress HEENT: Other (NG tube to suction) Respiratory: Clear to auscultation bilaterally, Normal air movement Cardiovascular: Regular rate/rhythm, Normal S1 S2 Gastrointestinal: Soft and benign, Other (Midline surgical abdominal wound) Integumentary: No rashes Neurological: Normal strength at 5/5 x4 extr Assessment And Plan - Current Problems (Diagnosis) (1) Intra-abdominal abscess Current Visit: Yes Status: Acute (2) Mesenteric mass Current Visit: Yes Status: Acute (3) Sepsis Current Visit: Yes Status: Acute - Plan General surgery Dr. Richardson is following. Repeat CT scan showed an enlarging abscess-could be infectious, MICHELLE or amoeba per radiology. Status post exploratory laparotomy, bowel resection and anastomosis and drainage of intra-abdominal abscess Continue IV Zosyn. C. difficile is negative. NG tube is in place Blood cultures: No growth to date. Leukocytosis resolved. Monitor CBC. Pain management as needed. Dr. Richardson to follow.
--- NOTE | 2022-10-01 16:19 | PN ---
Subjective: Status post laparotomy, bowel resection, anastomosis and drainage of intraperitoneal abs cess. The patient is doing better. No nausea. No vomiting. NG tube still in place. No shortness of breath. No chest pain. Objective: Chest: Clear. Abdomen: Intact surgical site. SHERLYN drain serosanguineous. Extremities: Good capillary refill. Laboratory Data: Blood work reviewed with potassium is 4.0, creatinine is 0.63. WBC count of 10.6. Plan: Continue NG tube, ambulation, incentive spirometry, DVT prophylaxis. Follow up cultures and p athology results. HM/MODL Voice ID: [id number] Report ID: [id number]
[2022-10-02] MEDS: MORPHINE 4 MG/ML SYR IV PRN
[2022-10-02 03:48] LABS: Absolute Lymphocytes (CBC) 1.3 K/uL (0.7-4.9); Hematocrit 29.8 % (39.6-49.0); Lymphocytes % 16.7 % (15.3-44.8); RBC Red Blood Cell Count 3.42 M/uL (4.33-5.43)
[2022-10-02 04:05] LABS: Potassium 3.8 mmol/L (3.5-5.1)
[2022-10-02] MEDS: PIPER TAZO 3.375 GM in NA CHLORIDE 0.9% 100 ML IV SCH ×4 (09:43→16:51)
[2022-10-02] MEDS: NA CHLORIDE 0.9% 1,000 ML IV SCH ×2 (09:45→21:26)
--- NOTE | 2022-10-02 11:56 | PN ---
Date of Progress Note: 10/02/2022 Diagnosis: Small bowel resection with anastomosis, drainage of intraperitoneal abscess, small bowel obstruction. Subjective: The patient is doing better. The NG tube is minimal, so it was removed today and the Fo edinson too. He still has no bowel sounds. Objective: Chest: Clear. Abdomen: Soft and depressible. Minimal bowel sounds. Extremities: Good capillary refill. Laboratory Data: Blood work was reviewed with WBC count of 7.9. Plan: Discontinue the NG tube, discontinue Granda, and then start probably clears tomorrow depends ho w clinically he deteriorates and if his bowel sounds improve and he is passing some gas. Ambulation encouraged. HM/MODL Voice ID: [id number] Report ID: [id number]
--- NOTE | 2022-10-02 17:18 | P.PN ---
Subjective Date of Service: 10/02/22 Chief Complaint: Abdominal pain Patient has no new complaint. He denies any pain. Status post exploratory laparotomy, bowel resection and anastomosis and drainage of intra-abdominal abscess 09/30/2022 NG tube not draining. Physical Examination - Vital Signs Temperature: 95.7 F Blood Pressure: 132/78 Pulse: 97 Respirations: 16 Pulse Ox (%): 97 - Physical Exam General: Alert, In no apparent distress, Oriented x3 HEENT: Mucous membr. moist/pink Neck: JVD not distended Respiratory: Clear to auscultation bilaterally, Normal air movement Cardiovascular: Regular rate/rhythm, Normal S1 S2 Gastrointestinal: Soft and benign, Non-distended, Other (Midline surgical wound dressed.) Musculoskeletal: No swelling Integumentary: No rashes, No cyanosis Neurological: Normal strength at 5/5 x4 extr Assessment And Plan - Current Problems (Diagnosis) (1) Intra-abdominal abscess Current Visit: Yes Status: Acute (2) Mesenteric mass Current Visit: Yes Status: Acute (3) Sepsis Current Visit: Yes Status: Acute - Plan General surgery Dr. Richardson is following. CT scan showed an enlarging abscess-could be infectious, MICHELLE or amoeba per radiology. Status post exploratory laparotomy, bowel resection and anastomosis and drainage of intra-abdominal abscess Continue IV Zosyn. C. difficile is negative. NG tube discontinued today. Currently n.p.o. Diet per surgery. Blood cultures: No growth to date. Leukocytosis resolved. Abdominal fluid culture: No growth. Monitor CBC. Pain management as needed. Dr. Richardson to follow.
--- NOTE | 2022-10-02 22:28 | P.PN ---
Date of Service: 10/03/22 Subjective: feeling better +flatus, + BM last night hungry ROS: A complete review of systems was performed and is negative except as mentioned above Physical Exam: Gen: NAD, AOx3 HEENT: normal conjunctiva, sclera anicteric CV: regular rate & rhythm, no edema Pulm: non-labored respirations, clear bilaterally Abd: soft, non-distended, surgical wound with dressing in place, c/d/i Neuro: normal speech, normal affect, moves all extremities vitals reviewed Problem List Intra-abdominal abscess, SBO, mesenteric mass Sepsis secondary to above General surgery Dr. Richardson is following. CT scan showed an enlarging abscess Status post exploratory laparotomy, bowel resection and anastomosis and drainage of intra-abdominal abscess Continue IV Zosyn. C. difficile is negative. surgical path pending NG tube dc'd 1/2 CLD - slowly Blood cultures: No growth to date. Leukocytosis resolved. ID following Abdominal fluid culture: No growth. Monitor CBC. Pain management as needed. Code: Full Dispo: home, ~2-3 days Time Spent Managing Pts Care (In Minutes): 35
[2022-10-03] MEDS: PIPER TAZO 3.375 GM in NA CHLORIDE 0.9% 100 ML IV SCH ×3 (01:19→17:48)
[2022-10-03 05:16] LABS: Absolute Lymphocytes (CBC) 1.1 K/uL (0.7-4.9); Hematocrit 32.9 % (39.6-49.0); Lymphocytes % 15.5 % (15.3-44.8); MCV 87.9 fL (80-100); MPV 8.4 fL (7.6-11.3); RBC Red Blood Cell Count 3.74 M/uL (4.33-5.43)
[2022-10-03 05:21] LABS: Potassium 3.7 mmol/L (3.5-5.1)
[2022-10-03] MEDS: NA CHLORIDE 0.9% 1,000 ML IV SCH ×2 (06:15→14:46)
[2022-10-03 06:24] LABS: Blood Morphology Comment NOT SEEN (NOT SEEN); Platelet Estimate INCR
--- NOTE | 2022-10-03 11:36 | P.CNS ---
Chief Complaint: Abdominal pain History of Present Illness: Patient is 52 years of age presented with acute onset of right periumbilical abdominal pain became worse and came to the emergency room. Allergies No Known Allergies Allergy (Unverified 09/25/22 16:54) Home Medications: NK [No Home Meds] 09/26/22 Review of Systems 10-point ROS is otherwise unremarkable (except for HPI) Gastrointestinal: As per HPI Physical Examination Temp Pulse Resp BP Pulse Ox 97.0 F 60 16 133/62 97 10/03/22 08:00 10/03/22 08:00 10/03/22 08:00 10/03/22 08:00 10/03/22 08:00 General: Alert, Oriented x3 HEENT: Atraumatic, Normocephalic Neck: Supple Respiratory: Clear to auscultation bilaterally Cardiovascular: Normal S1 S2 Gastrointestinal: Hypoactive, Other (Surgical dressing seen in mid abdomen with two SHERLYN drains in place) Musculoskeletal: No swelling Integumentary: Other Neurological: Normal speech - Problems (1) Intra-abdominal abscess Current Visit: Yes Status: Acute Plan: 09/[address]: : 9 centimeter fluid-filled mass containing air within the central mesentery has enlarged since the prior exam probably an abscess. Considerations include bacterial, MICHELLE and amoebiasis Currently on IV Zosyn, day 8, started 09/26 09/30 Wound culture: GNR, pending culture 09/26 BC: Negative (2) Mesenteric mass Current Visit: Yes Status: Acute (3) Sepsis Current Visit: Yes Status: Acute Plan: 09/26 BC: Negative Keep monitoring WBC and fever trend. If spikes, repeat BC Conclusions/Impression: Case has been discussed with Elvin Mtz. Thank you Dr. Avila for consult
--- NOTE | 2022-10-03 11:37 | PN ---
Date of Progress Note: 10/03/2022 Diagnosis: Intraabdominal abscess. Also bowel obstruction, small bowel resection with anastomosis. Subjective: This is a case of a 52-year-old patient who comes to the hospital with small bowel obstr uction, twisted intestines with an abscess, have to be taken to surgery, underwent laparotomy, bowel resection, drainage of an abscess. Patient is postop day #2. Is improving. NG tube is out. Granda is out. He is ambulating with assistance. He is passing gas and had bowel movement last night. Objective: Chest: Clear. Abdomen: Soft and depressible. Intact surgical site. SHERLYN drain serosanguineous. Extremities: Good capillary refill. No calf tenderness. Laboratory Data: Blood work reviewed. Plan: Start clear liquid diet, ambulation, incentive spirometry. DVT prophylaxis. HM/MODL Voice ID: [id number] Report ID: [id number]
[2022-10-03 16:14] VITALS: O2SAT 97
[2022-10-04] MEDS: NA CHLORIDE 0.9% 1,000 ML IV SCH ×3 (02:33→21:00)
[2022-10-04] MEDS: PIPER TAZO 3.375 GM in NA CHLORIDE 0.9% 100 ML IV SCH ×2 (02:33→09:00)
[2022-10-04 04:00] LABS: Hematocrit 32.1 % (39.6-49.0); MCV 87.3 fL (80-100); MPV 7.8 fL (7.6-11.3); RBC Red Blood Cell Count 3.67 M/uL (4.33-5.43)
[2022-10-04 04:10] LABS: Magnesium 2.1 mg/dL (1.6-2.4); Potassium 3.7 mmol/L (3.5-5.1)
--- NOTE | 2022-10-04 09:54 | P.PN ---
Subjective Date of Service: 10/04/22 Chief Complaint: Abdominal pain Physical Examination - Vital Signs Temperature: 96.8 F Blood Pressure: 121/59 Pulse: 61 Respirations: 16 Pulse Ox (%): 97 Assessment And Plan - Current Problems (Diagnosis) (1) Intra-abdominal abscess Current Visit: Yes Status: Acute Plan: 09/[address]: : 9 centimeter fluid-filled mass containing air within the central mesentery has enlarged since the prior exam probably an abscess. Considerations include bacterial, MICHELLE and amoebiasis Currently on IV Zosyn, day 8, started 09/26 09/30 Wound culture: GNR, pending culture 09/26 BC: Negative (2) Mesenteric mass Current Visit: Yes Status: Acute (3) Sepsis Current Visit: Yes Status: Acute Plan: 09/26 BC: Negative Keep monitoring WBC and fever trend. If spikes, repeat BC
[2022-10-04] MEDS: Meropenem 1,000 MG in NA CHLORIDE 0.9% 100 ML IV SCH ×2 (11:09→18:31)
--- NOTE | 2022-10-04 12:23 | PN ---
Date of Progress Note: 10/04/2022 Diagnosis: Intraabdominal abscess. Small bowel resection and anastomosis. Subjective: Patient is doing better, starting to tolerate diet. He is on clear liquid. We are shun g to advance to full liquid diet, passing flatus. Objective: Chest: Clear. Abdomen: Soft and depressible. SHERLYN drain serosanguineous. Extremities: Good capillary refill. Laboratory Data: Blood work reviewed. Plan: I discussed the case with Dr. Johns. From the surgical standpoint, we are advancing the diet and he might be ready for tomorrow to have a soft diet, but unfortunately since he has this large in traabdominal abscess which by the way pathology is still pending. Culture shows gram-negative E coli and ID recommended patient to be on several weeks of IV antibiotics. We will let the primary doctor decide if he has to stay here to do so or he can go home once the diet gets tolerated. SOPHIA/AMANUEL Voice ID: [id number] Report ID: [id number]
--- NOTE | 2022-10-04 23:01 | P.PN ---
Date of Service: 10/04/22 Subjective: feeling better +flatus, + BM tolerating sips of clears ambulating afebrile ROS: A complete review of systems was performed and is negative except as mentioned above Physical Exam: Gen: NAD, AOx3 HEENT: normal conjunctiva, sclera anicteric CV: regular rate & rhythm, no edema Pulm: non-labored respirations, clear bilaterally Abd: soft, non-distended, surgical wound with dressing in place, c/d/i Neuro: normal speech, normal affect, moves all extremities vitals reviewed Problem List Intra-abdominal abscess, SBO, mesenteric mass Sepsis secondary to above CT scan showed an enlarging abscess Status post exploratory laparotomy, bowel resection and anastomosis and drainage of intra-abdominal abscess General surgery Dr. Richardson is following. slowly advancing diet culture grew ESBL e. coli - resulted 10/04 zosyn switched to merrem on 10/04 for esbl e.coli ID following suspect patient will need 2 weeks, IV Merrem vs invanz surgical path pending Pain management as needed. Code: Full Dispo: home, ~2-3 days Time Spent Managing Pts Care (In Minutes): 25
[2022-10-05] MEDS: Meropenem 1,000 MG in NA CHLORIDE 0.9% 100 ML IV SCH ×3 (01:58→17:09)
--- NOTE | 2022-10-05 07:26 | P.PN ---
Date of Service: 10/05/22 Subjective: no acute events improving tolerating PO, +bowel function ROS: A complete review of systems was performed and is negative except as mentioned above Physical Exam: Gen: NAD, AOx3 HEENT: normal conjunctiva, sclera anicteric CV: regular rate & rhythm, no edema Pulm: non-labored respirations, clear bilaterally Abd: soft, non-distended, surgical wound with dressing in place, c/d/i Neuro: normal speech, normal affect, moves all extremities vitals reviewed Problem List Intra-abdominal abscess, SBO, mesenteric mass; now s/p ex-lap: bowel resection, and drainage Sepsis secondary to above CT scan showed an enlarging abscess Status post exploratory laparotomy, bowel resection and anastomosis and drainage of intra-abdominal abscess General surgery Dr. Richardson is following. slowly advancing diet culture grew ESBL e. coli - resulted 10/04 zosyn switched to merrem on 10/04 for esbl e.coli ID following PICC ordered IV antibiotics ordered social media content manager consulted to assist with setting up IV antibiotics as outpatient surgical path pending Pain management as needed. Code: Full Dispo: home, ~1-2 days Time Spent Managing Pts Care (In Minutes): 25
[2022-10-05] MEDS: NA CHLORIDE 0.9% 1,000 ML IV SCH ×2 (09:51→20:39)
[2022-10-05] MEDS ORDERED: HYDROCODONE/APAP 5/325 MG TAB PO PRN (21:34)
[2022-10-06] MEDS: Meropenem 1,000 MG in NA CHLORIDE 0.9% 100 ML IV SCH ×2 (01:05→12:27)
[2022-10-06 03:33] LABS: Hematocrit 31.2 % (39.6-49.0); MCV 87.5 fL (80-100); MPV 7.4 fL (7.6-11.3); RBC Red Blood Cell Count 3.57 M/uL (4.33-5.43)
[2022-10-06 03:48] LABS: Potassium 3.9 mmol/L (3.5-5.1)
--- NOTE | 2022-10-06 12:03 | RAD REPORT ---
EXAM DESCRIPTION: RAD - Chest Single View - 10/06/2022 11:46 am CLINICAL HISTORY: PICC line placement COMPARISON: Abdomen 1 View (KUB) dated 09/30/2022 FINDINGS: Lines: Right subclavian approach PICC with tip overlying the right atrium. Lungs: No evidence of edema or pneumonia. Pleural: No significant pleural effusions or pneumothorax. Cardiac: The heart size is within normal limits. Mediastinum: Within normal limits. Bones: No acute fractures. Other: None IMPRESSION: No acute cardiopulmonary disease. PICC tip overlies the right atrium in satisfactory pos ition. If SVC positioning is desired, the PICC could be retracted by 3.5 cm.
--- NOTE | 2022-10-06 12:59 | P.DS ---
Admission Date: 09/25/22 Discharge Date: 10/06/22 Disposition: ROUTINE DISCHARGE Discharge Condition: GOOD Reason for Admission: Abdominal pain Consultations: ID - Dr. Johns General Surgery - Dr. Richardson Brief History of Present Illness: 52yo M, presented to ED due to acute onset of right periumbilical abdominal pain. CT abd/pelvis noted soft tissue mass in small bowel mesentery which contains both gas and fluid. Hospital Course: Problem List Intra-abdominal abscess, SBO, mesenteric mass; now s/p ex-lap: bowel resection, and drainage, with SHERLYN drain placaement Sepsis secondary to above CT scan noted enlarging abscess. Dr. Richardson was consulted and patient underwent exploratory laparotomy, bowel resection, and anastomosis, with drainage of intra-abdominal abscess. Post-operative course was uncomplicated. Patient's diet was advanced gradually which he tolerated well. He was voiding and having bowel movements without issue. Surgical cultures grew ESBL e.coli. ID was consulted and recommended 2 weeks of IV treatment. He received merrem during hospitalization and discharged with ertapenem per ID. End date: 10/16/22 Weekly cbc and BMP while on antibiotics. Results to be faxed to Dr. Johns. Follow up: Dr. Richardson in his office this coming Sunday PCP Within 1 week SHERLYN drain and wound care as instructed by Dr. Richardson Vital Signs/Physical Exam: Temp Pulse Resp BP Pulse Ox 97.1 F 60 16 122/64 97 10/06/22 12:00 10/06/22 12:00 10/06/22 12:00 10/06/22 12:00 10/06/22 12:00 Physical Exam: Gen: NAD, AOx3 HEENT: normal conjunctiva, sclera anicteric CV: regular rate & rhythm, no edema Pulm: non-labored respirations, clear bilaterally Abd: soft, non-distended, surgical wound with dressing in place, c/d/i Neuro: normal speech, normal affect, moves all extremities Laboratory Data at Discharge: WBC 6.60 K/uL (4.3-10.9) 10/06/22 02:45 Hgb 10.7 g/dL (13.6-17.9) L 10/06/22 02:45 Hct 31.2 % (39.6-49.0) L 10/06/22 02:45 Plt Count 589 K/uL (152-406) H 10/06/22 02:45 PT 13.0 SECONDS (9.5-12.5) H 09/26/22 02:04 INR 1.18 09/26/22 02:04 Sodium 140 mmol/L (136-145) 10/06/22 02:45 Potassium 3.9 mmol/L (3.5-5.1) 10/06/22 02:45 BUN 7 mg/dL (7-18) 10/06/22 02:45 Creatinine 0.55 mg/dL (0.70-1.30) L 10/06/22 02:45 Glucose 127 mg/dL (74-106) H 10/06/22 02:45 Magnesium 2.1 mg/dL (1.6-2.4) 10/04/22 03:14 Total Bilirubin 2.2 mg/dL (0.2-1.0) H 09/27/22 03:15 AST 52 U/L (15-37) H 09/27/22 03:15 ALT 106 U/L (16-61) H 09/27/22 03:15 Alkaline Phosphatase 165 U/L (45-117) H 09/27/22 03:15 Lipase 102 U/L (73-393) 09/25/22 15:03 Home Medications: traMADol HCL [Ultram*] 50 mg PO Q8H PRN #15 tab 10/06/22 New Medications: traMADol HCL [Ultram*] 50 mg PO Q8H PRN #15 tab PRN Reason: Pain Physician Discharge Instructions: Problem List Intra-abdominal abscess, SBO, mesenteric mass; now s/p ex-lap: bowel resection, and drainage, with SHERLYN drain placaement Sepsis secondary to above CT scan noted enlarging abscess. Dr. Richardson was consulted and patient underwent exploratory laparotomy, bowel resection, and anastomosis, with drainage of intra-abdominal abscess. Post-operative course was uncomplicated. Patient's diet was advanced gradually which he tolerated well. He was voiding and having bowel movements without issue. Surgical cultures grew ESBL e.coli. ID was consulted and recommended 2 weeks of IV treatment. He received merrem during hospitalization and discharged with ertapenem per ID. End date: 10/16/22 Weekly cbc and BMP while on antibiotics. Results to be faxed to Dr. Johns. Follow up: Dr. Richardson in his office this coming Sunday PCP Within 1 week SHERLYN drain and wound care as instructed by Dr. Richardson Followup: Unknown,U [Primary Care Provider] - Time spent managing pt's care (in minutes): 45
[2022-10-06] MEDS ORDERED: ERTAPENEM SODIUM 1 GM VIAL IVPB ONE (15:48)
[2022-10-06 16:39] VITALS: BP 116/63; TEMP 97.5
--- NOTE | 2022-10-06 16:43 | PN ---
Subjective: Patient is lying in bed. No new acute event. Chart reviewed. Assessment And Plan: Continues to have mild abdominal discomfort. Otherwise unremarkable. Patient is currently being treated with meropenem for intraabdominal abscess associated with small bowel obst ruction, status post bowel resection. Patient is afebrile and doing well. Continue antibiotic and s upportive care. NF/MODL Voice ID: [id number] Report ID: [id number]
[2022-10-06] MEDS ORDERED: ERTAPENEM NA 1 GM in NA CHLORIDE 0.9% 100 ML IVPB SCH (17:00)
== END 2022-10-06 18:30 | disposition home or self-care (01) | DRG 853 ==
LOC: ER 10:30 → ERHOLD 16:20 → 4TH 09-26 12:37
PROVIDERS: ADMIT Internal Medicine Sleep Medicine; ATTEND Hospitalist
PROC: 0W9G00Z Drainage of Peritoneal Cavity with Drainage Device, Open Approach (ICD-10-PCS; 2022-09-30)
PROC: 0WQF0ZZ Repair Abdominal Wall, Open Approach (ICD-10-PCS; 2022-09-30)
PROC: 0DB80ZZ Excision of Small Intestine, Open Approach (ICD-10-PCS; principal; 2022-09-30 15:30)
PROC: 02H633Z Insertion of Infusion Device into Right Atrium, Percutaneous Approach (ICD-10-PCS; 2022-10-06)
DX: A41.51 Sepsis due to Escherichia coli [E. coli] (principal); K65.1 Peritoneal abscess; K42.0 Umbilical hernia with obstruction, without gangrene; Z16.12 Extended spectrum beta lactamase (ESBL) resistance; K52.9 Noninfective gastroenteritis and colitis, unspecified; R19.09 Other intra-abdominal and pelvic swelling, mass and lump; Z20.822 Contact with and (suspected) exposure to COVID-19
CPT/HCPCS: 36415; 36569; 71045; 74018; 74177; 80048; 80053; 80074; 81003; 82565; 82947; 83690; 83735; 85025; 85027; 85610; 87040; 87070; 87075; 87077; 87186; 87205; 87324; 87811; 88302; 88309; 94010; 96374; 97116; 97161; 99285; J1100; J1170; J1335; J2001; J2185; J2250; J2270; J2405; J2543; J2704; J3010; J7030; J7120; Q9967